=== PATIENT | female | born 1945 | race Caucasian/White ===

== ENCOUNTER 2017-03-14 20:54 | Emergency (ER) | payer MEDICARE, OTHER ==
--- OUTSIDE RECORDS SUMMARY | 2017-03-14 20:57 | XMS | Clinical Summary ---
:1945 Author Organization [facility] Address [address] [place] [address] Phone Care Team Providers Name Role Phone , Primary Care Provider Unavailable Allergies Not on File Current Medications Not on file Active Problems Not on file Social History Tobacco Use Types Packs/Day Years Used Date Never Assessed Sex Assigned at Date Recorded Not on file Last Filed Vital Signs Not on file Plan of Treatment Not on file Results Not on filefrom Last 3 Months
[2017-03-14 22:52] LABS: #Basophils 0.1 thou/uL (0.0-0.2); #Eosinphils 0.2 thou/uL (0.0-0.7); #Lymphocytes 2.5 thou/uL (1.20-3.40); #Neutrophils 6.8 thou/uL (1.40-6.50); %Basophils 1.1 % (0.0-1.0); %Eosinophils 2.1 % (0.0-10.0); %Lymphocytes 23.8 % (21.0-51.0); %Monocytes 9.1 % (0.0-10.0); Hematocrit 45.3 % (36.0-47.0); Mean Platelet Volume 6.8 fL (7.4-10.4); White Blood Cell (WBC) Count 10.6 thou/uL (4.8-10.8)
[2017-03-14 23:15] LABS: ALT (SGPT) Less than 7 U/L (8-55); AST (SGOT) 27 U/L (5-34); Alkaline Phosphatase 83 U/L (40-150); Anion Gap 17 mmol/L (10-20); BUN (Urea Nitrogen) 17 mg/dL (9.8-20.1); Bilirubin, Total 0.4 mg/dL (0.2-1.2); Calc. Creatinine Clearance 0 mL/min (70-130); Calcium 10.1 mg/dL (7.8-10.44); Carbon Dioxide 25 mmol/L (23-31); Chloride 100 mmol/L (98-107); Estimated GFR-MDRD 73; Globulin 3.2 g/dL (2.4-3.5); Protein, Total 7.5 g/dL (6.0-8.3)
--- NOTE | 2017-03-14 23:49 | CT ---
NONCONTRAST CT OF THE CERVICAL SPINE: 03/14/17 INDICATION: Fall with neck pain. COMPARISON: Prior exam dated 02/22/17. FINDINGS: No acute fracture or subluxation is evident. There is slight anterior translation of C2 on C3, C4 on C5 and C5 on C6 which is stable. There is moderate multilevel spondylosis of the cervical spine. Cr aniocervical junction is within normal limits. The lung apices are clear. IMPRESSION: No acute osseous abnormality. POS: [facility]
--- NOTE | 2017-03-14 23:53 | CT ---
NONCONTRAST CT OF THE BRAIN: 03/14/17 INDICATION: Fall. COMPARISON: Prior exam dated 02/22/17. FINDINGS: No acute infarct, hemorrhage, or hydrocephalus present. There is mild generalized cerebral and cereb ellar atrophy. Skull and extracranial soft tissues appear within normal limits. IMPRESSION: No acute intracranial abnormality. No appreciable changes seen from the comparison study of 02/22/17. There is a small air fluid level within the left maxillary sinus which may reflect sequela of acute sinusitis. POS: [facility]
[2017-03-15 00:07] LABS: Bilirubin Negative (Negative); Blood, Urine Small (Negative); Glucose, Urine (Dipstick) Negative (Negative); Ketone, Urine 40 mg/dL (Negative); Nitrite Negative (Negative); Protein, Urine (Dipstick) Negative (Neg-Trace); Urobilinogen 0.2 mg/dL (0.2-1.0)
[2017-03-15 00:25] LABS: Bacteria/HPF None Seen HPF (None Seen); Hyaline Casts/LPF 4-6 HYALINE CAST LPF (0-3 Hyaline); RBC/HPF 21-50 HPF (0-3); Squamous Epithelial 0-3 HPF (0-3); WBC/HPF 0-3 HPF (0-3)
[2017-03-15] MEDS ORDERED: Amoxicillin/Potassium Clav 250 MG TAB ONE (00:30)
== END 2017-03-15 00:49 | disposition home or self-care (01) ==
LOC: ERS 20:54
DX: S09.90XA Unspecified injury of head, initial encounter (principal); J32.9 Chronic sinusitis, unspecified; K21.9 Gastro-esophageal reflux disease without esophagitis; G20 Parkinson's disease; Z79.899 Other long term (current) drug therapy; W01.198A Fall on same level from slipping, tripping and stumbling with subsequent striking against other object, initial encounter
CPT/HCPCS: 51701; 70450; 72125; 80053; 81003; 81015; 85025; A4353

== ENCOUNTER 2017-03-26 10:47 | Observation (INO) | payer MEDICARE, OTHER ==
--- OUTSIDE RECORDS SUMMARY | 2017-03-26 10:50 | XMS | Clinical Summary ---
:1945 Author Organization [facility] Address [address] [place] [address] Phone Care Team Providers Name Role Phone [...]
[2017-03-26 11:45] LABS: #Basophils 0.1 thou/uL (0.0-0.2); #Eosinphils 0.2 thou/uL (0.0-0.7); #Lymphocytes 1.4 thou/uL (1.20-3.40); #Monocytes 0.8 thou/uL (0.11-0.59); #Neutrophils 7.3 thou/uL (1.40-6.50); %Basophils 0.8 % (0.0-1.0); %Eosinophils 1.8 % (0.0-10.0); %Lymphocytes 14.2 % (21.0-51.0); Hematocrit 41.8 % (36.0-47.0); Mean Platelet Volume 6.4 fL (7.4-10.4); Red Blood Cell (RBC) Count 4.38 mill/uL (4.20-5.40); White Blood Cell (WBC) Count 9.6 thou/uL (4.8-10.8)
[2017-03-26 12:16] LABS: ALT (SGPT) Less than 7 U/L (8-55); AST (SGOT) 15 U/L (5-34); Alkaline Phosphatase 75 U/L (40-150); Anion Gap 12 mmol/L (10-20); BUN (Urea Nitrogen) 16 mg/dL (9.8-20.1); Bilirubin, Total 0.5 mg/dL (0.2-1.2); Calc. Creatinine Clearance 0 mL/min (70-130); Calcium 8.8 mg/dL (7.8-10.44); Carbon Dioxide 25 mmol/L (23-31); Chloride 104 mmol/L (98-107); Estimated GFR-MDRD 77; Globulin 2.5 g/dL (2.4-3.5); Protein, Total 6.2 g/dL (6.0-8.3)
--- NOTE | 2017-03-26 12:17 | CT ---
CT HEAD NONCONTRAST: Date: 03/26/17 HISTORY: Altered mental status. Slurred speech. COMPARISON: 03/14/17. FINDINGS: There is no evidence of acute intracranial hemorrhage or infarct. The ventricles appear normal in si ze, shape, and position. There is no mass effect or shift of midline structures. Mild chronic ischem ic small vessel disease is apparent within the periventricular white matter of each cerebral hemisph ere. A small amount of fluid remains within the left maxillary sinus. IMPRESSION: No active cardiopulmonary abnormalities are demonstrated. POS: [facility]
--- NOTE | 2017-03-26 13:03 | RAD ---
AP VIEW OF THE CHEST: INDICATIONS: group home patient with slurred speech and chest pain. FINDINGS: There is a prominent hiatal hernia. There is calcified granuloma in the left lower lobe, which is s table. Chronic lung changes are similar. Chronic osseous changes are similar. IMPRESSION: No acute cardiopulmonary abnormality. POS: [facility]
[2017-03-26] MEDS ORDERED: Aspirin 300 MG Suppository ONE (13:05)
[2017-03-26 13:15] LABS: Bilirubin Negative (Negative); Blood, Urine Negative (Negative); Glucose, Urine (Dipstick) Negative (Negative); Ketone, Urine Trace mg/dL (Negative); Nitrite Negative (Negative); Protein, Urine (Dipstick) Negative (Neg-Trace); Urobilinogen 0.2 mg/dL (0.2-1.0)
--- NOTE | 2017-03-26 14:17 | HP ---
PRIMARY CARE PHYSICIAN: Dr. Hightower CHIEF COMPLAINT: Referred to the [facility] by [facility]. HISTORY OF PRESENT ILLNESS: The patient awoke this morning about 8:00, was doing okay until she started stumbling with words, unable to express herself, lasted about 4 hours. She is now okay. She noted no focal weakness in her arms and legs. No visual disturbance. No headache. PAST MEDICAL HISTORY: Pertinent for Parkinson's disease, gastroesophageal reflux disease, dysphagia, PEG tube. CURRENT MEDICATIONS: Sinemet 25/250 3-3 times a day, omeprazole 20 mg a day, Selegiline 5 mg twice a day, serax 10 mg tid prn, seroquel 50 mg bid. ALLERGIES: No known drug allergies. PAST SURGICAL HISTORY: PEG tube insertion, ORIF of right hip. SOCIAL HISTORY: Resident at [place]. No alcohol, no drugs. No smoking. CODE STATUS: DNR. She has out of hospital DNR. Daughter is present, I confirmed with her and the patient, she is to be DNR. FAMILY HISTORY: No inherited diseases . Pertinent for longevity. REVIEW OF SYSTEMS: GENERAL: No headaches, dizziness, fainting, fevers, sweats or chills. EYES: No double vision, blurred vision, flashing lights. ENT: No ear pain or drainage. No nasal bleeding. No trouble swallowing. CARDIAC: No chest pain, orthopnea or paroxysmal nocturnal dyspnea. RESPIRATIONS: No cough, wheezing or asthma. GASTROINTESTINAL: No nausea, vomiting, diarrhea, abdominal pain. GENITOURINARY: No hematuria or dysuria. MUSCULOSKELETAL: No pain or swelling in her arms or legs. NEUROLOGICAL: No history of strokes, seizures or focal weakness. She does have a history of Parkinson's. PSYCHIATRIC: No anxiety or depression. SKIN: Some minor bruising on her arms. No chronic rash. HEME/LYMPH: No tender or swollen lymph nodes in axilla, inguinal or cervical area. PHYSICAL EXAMINATION: GENERAL: She is an alert, pleasant, cooperative lady. VITAL SIGNS: Blood pressure 148/82, pulse 94, respirations 18, temperature 97.5. HEENT: Pupils equal and round. Extraocular movements are intact. Sclerae white. Tympanic membranes clear. Nose clear. Oral mucous membranes are wet. Dental hygiene is good. NECK: Supple, without jugular venous distention, adenopathy or thyromegaly. CHEST: Clear to auscultation and percussion. HEART: Heart had a regular rate and rhythm. First and second heart sounds are clear. There are no appreciated murmurs or gallops. ABDOMEN: Soft, bowel sounds are normal. There is no hepatosplenomegaly, no mass, no rebound, no bruits. EXTREMITIES: Reveal no cyanosis, clubbing or edema. PULSES: Carotid, radial, femoral, and dorsalis pedis pulses intact. SKIN: Warm and dry with a few small ecchymotic lesions on her forearms consistent with thin skin and minor trauma. NEUROLOGIC: Cranial nerves II-XII are intact. Deep tendon reflexes symmetric. Moves all extremities. She does have cogwheeling. Chest x-ray reveals no cardiomegaly, CHF or infiltrate. She does have a small left lung granuloma which appears calcified, which Radiology states is old, reviewed by me. CT of the brain reveals no acute intracranial abnormality, specifically no hemorrhage, midline shift, etc., reviewed by me. LABORATORY DATA: CBC is grossly normal. White count 9.6, hemoglobin 13.2, platelet count 228,000. Comp metabolic profile is within normal limits. Urinalysis is clear. ADMITTING DIAGNOSES: 1. Speech difficulty consistent with transient ischemic attack. 2. Parkinson's disease. 3. Gastroesophageal reflux disease. 4. Dysphagia. . PLAN: Admit to stroke floor with telemetry, neuro checks, carotid ultrasound, MRI. Continue home medications. MTDD
[2017-03-26] MEDS ORDERED: Acetaminophen 325 MG TAB PER TUBE PRN (14:48)
[2017-03-26] MEDS ORDERED: Ondansetron ODT 4 MG TAB PO PRN (14:48)
[2017-03-26] MEDS ORDERED: Oxazepam 10 MG CAP PO PRN (15:13)
--- NOTE | 2017-03-26 17:06 | ULT ---
BILATERAL CAROTID DUPLEX ULTRASOUND: 03/26/17 HISTORY: TIA. TECHNIQUE: Russell scale ultrasound with color flow and spectral doppler imaging of the extracranial carotid arter y system is performed bilaterally. FINDINGS: There is plaque formation on both sides. The peak systolic velocity in the right ICA measures 39 cm/s with an end diastolic velocity of 12 cm /s and a systolic ratio of 1.08. The peak systolic velocity in the left ICA measures 51 cm/s with an end diastolic velocity of 16 cm/ s and a systolic ratio of 1.63. Flow in both vertebral arteries remains antegrade. IMPRESSION: No evidence of hemodynamically significant stenosis. POS: [facility]
[2017-03-26] MEDS: Carbidopa/Levodopa 25-250 mg Tablet PO SCH (20:24)
--- NOTE | 2017-03-27 07:36 | PDOC.PN ---
- Subjective Encounter Start Date: 03/27/17 Encounter Start Time: 07:34 Subjective: no recurrence of speech difficulty - Objective Resuscitation Status: Resuscitation Status DNR:Do Not Resuscitate MAR Reviewed: Yes Vital Signs & Weight: Vital Signs (12 hours) Temp Pulse Resp BP Pulse Ox 03/27/17 03:30 97.8 F 83 16 123/82 97 03/26/17 23:32 97.8 F 81 18 152/91 H 97 03/26/17 20:38 98.4 F 81 16 Weight Weight 113 lb 14.4 oz Result Diagrams: 03/26/17 11:35 03/26/17 11:35 Phys Exam - Physical Examination Constitutional: NAD Neck: no JVD Respiratory: clear to auscultation bilateral Cardiovascular: RRR, no significant murmur Gastrointestinal: soft, positive bowel sounds Musculoskeletal: no edema, pulses present Neurological: non-focal Dx/Plan (1) TIA (transient ischemic attack) Status: Acute (2) Dyslipidemia Code(s): E78.5 - HYPERLIPIDEMIA, UNSPECIFIED Status: Chronic (3) GERD (gastroesophageal reflux disease) Code(s): K21.9 - GASTRO-ESOPHAGEAL REFLUX DISEASE WITHOUT ESOPHAGITIS Status: Chronic (4) Parkinsons Code(s): G20 - PARKINSON'S DISEASE Status: Chronic - Plan carotid US- no stenosis, MRI pending -: cont ASA * .
[2017-03-27] MEDS ORDERED: Aspirin 325 mg Enteric Coated Tablet PO SCH (09:00)
[2017-03-27] MEDS ORDERED: Enoxaparin Sodium 40 MG/0.4 ML SYRINGE SC SCH (09:00)
[2017-03-27] MEDS ORDERED: Polyethylene Glycol 3350 17 GM Packet PO SCH (09:00)
[2017-03-27] MEDS ORDERED: FLU VACC TS2017-18 (>65YR) 0.5 ML SYRINGE IM ONE (09:00)
[2017-03-27] MEDS: Carbidopa/Levodopa 25-250 mg Tablet PO SCH ×2 (09:12→15:45)
[2017-03-27 12:34] VITALS: BMI 24.5
--- NOTE | 2017-03-27 15:38 | MRI ---
BRAIN MRI NONCONTRAST: INDICATION: Stroke. COMPARISON: Reference is made to head CT of previous day. FINDINGS: There is no evidence o ventriculomegaly, mass effect, or midline shift. No acute territorial infarc tion. Mild chronic microvascular ischemic disease is present within the cerebral white matter. The imaged, central skull base flow voids are maintained. Mild mucosal thickening of the paranasal sin us is present. There is a fluid level of the left maxillary sinus. IMPRESSION: 1. No acute intracranial abnormalities. 2. Additional details are described above. POS: [facility]
[2017-03-27 16:15] VITALS: BP 152/106; TEMP 97.7
--- NOTE | 2017-03-27 16:32 | DIS ---
DATE OF ADMISSION: 03/26/2017 DATE OF DISCHARGE: 03/27/2017 PRIMARY CARE PROVIDER: Mitchell Hightower D.O. DISCHARGE DISPOSITION: Discharged to inpatient rehabilitation. FINAL DIAGNOSES: Transient ischemic attack, Parkinson's disease, gastroesophageal reflux disease, d ysphagia. DISCHARGE MEDICATIONS: MiraLax 17 grams p.o. daily, Serax 10 mg q. 8 hours p.r.n., Seroquel 50 mg p .o. b.i.d., selegiline 5 mg p.o. b.i.d., omeprazole 20 mg a day, Sinemet 25/250 three tabs p.o. t.i. d., Lipitor 10 mg a day, and aspirin 325 mg a day. ALLERGIES: No known drug allergies. PENDING AT THE TIME OF DISCHARGE: Nothing. CODE STATUS: Do not resuscitate. HOSPITAL COURSE: Patient admitted with several hours of slurred speech. CT scan of the brain was u nremarkable. Her admitting laboratory, comprehensive metabolic profile, CBC, and cholesterol studie s were really excellent. Carotid ultrasound revealed no stenosis. MRI revealed no acute infarct. Diagnosis of TIA was made. She was started on aspirin. She is now being started on a statin, zoila schultz on her other home medicines. CONSULTATIONS: None. PROCEDURES: None. FOLLOWUP: Followup will be with Dr. Hightower after leaving the rehab center.
--- NOTE | 2017-04-01 07:43 | CON ---
DATE OF CONSULTATION: 03/26/2017 REASON FOR CONSULTATION: TIA. REFERRING PHYSICIAN: Dr. Agustin Chowdhury HISTORY OF PRESENT ILLNESS: Ms. Cade is a pleasant 71-year-old female who has been consul ning for evaluation of a TIA type episode. History is obtained from the daughter who was present at bedside. The patient is known to me from my clinic with a history of Parkinson disease. She recent ly has noted gradual decline in Parkinson disease along with increasing episodes of hallucinations a nd confusion. I had seen her in my clinic 2 days prior to admission. The daughter reports that on yesterday she was planning for being discharged to another fdc facility. However, just prior to being discharged, she had a sudden onset of garbled speech that was witnessed by the [facility] physician as well as nursing staff. As her symptoms were not improving she was toribio sferred to [facility]. Daughter reports that her symptoms did start improving after a few hours being into the hospital. During with the onset of this episode they had measured her bl ood pressure which was noted to be normal. She also had a normal fingerstick glucose at that time. Currently, the patient denies any headache, chest pain, palpitation, numbness, tingling or weakness . Daughter does report that she has been having episodes of not being able to sleep well at night, although she did go to sleep at 9 o'clock last night according to the patient. PAST MEDICAL HISTORY: Significant for hypertension, hyperlipidemia, Parkinson disease, and GERD. PAST SURGICAL HISTORY: Significant for PEG tube placement, right hip ORIF. CURRENT MEDICATIONS: Please review MAR. ALLERGIES: No known drug allergies. SOCIAL HISTORY: She currently resides at [facility]. She does not smoke or drink alcohol or use illicit drugs. FAMILY HISTORY: Noncontributory. REVIEW OF SYSTEMS: As mentioned in the HPI, otherwise negative. PHYSICAL EXAMINATION: VITAL SIGNS: Blood pressure of 121/81, pulse of 81, temperature of 98.4, respirations of 16, O2 sat s 90% on room air. GENERAL: Well-developed, well-nourished female in no apparent distress. RESPIRATORY: Clear to auscultation bilaterally. CARDIOVASCULAR: Regular rate and rhythm. NEUROLOGICAL: Mental status: The patient is awake, alert, oriented x2. Speech and language: Flue nt speech. Cranial nerves: Pupils are 3 mm and reactive. Visual jeronimo are intact. Extraocular movements are intact. Face is symmetric. Tongue and uvula are midline. Motor exam augie wed mild cogwheeling, rigidity in both wrists, strength is 5/5 in both upper and lower extremities. Deep tendon reflexes 2+ reflexes in both upper and lower extremities. Babinski: Plantar responses flexion bilaterally. Sensory: Sensation is intact and symmetric. Coordination; intact to finger- nose-finger bilaterally. LABORATORY DATA: Labs are reviewed which included CBC, CMP, and urinalysis, which is essentially no rmal. IMAGING STUDIES: CT head without contrast was reviewed which showed no acute intracranial abnormali ty. IMPRESSION: 1. Transient episode of expressive aphasia, now resolved. 2. Parkinson's disease. 3. Hallucinations. Ms. Cade is a pleasant 71-year-old female who presented with the episode of expressive aph ceci that has now resolved. I had a long discussion with the patient's daughter and explained that this could be secondary to a transient ischemic attack. This could also be seen in patients with th e sleep deprivation. At this time, I would recommend obtaining MRI brain without contrast for furth er evaluation. If her MRI brain is nonrevealing and she is stable over the night, she is okay to be discharged to the residential facility and I will be seeing her back in my clinic as scheduled. Thank you for the consultation.
== END 2017-03-27 17:45 ==
LOC: ERS 10:47 → 2SE 13:10
PROVIDERS: ADMIT Internal Medicine; ATTEND Internal Medicine
DX: G45.9 Transient cerebral ischemic attack, unspecified (principal); G20 Parkinson's disease; K21.9 Gastro-esophageal reflux disease without esophagitis; R13.10 Dysphagia, unspecified; K44.9 Diaphragmatic hernia without obstruction or gangrene; J84.89 Other specified interstitial pulmonary diseases; Z79.82 Long term (current) use of aspirin; Z79.899 Other long term (current) drug therapy; Z66 Do not resuscitate; Z98.890 Other specified postprocedural states
CPT/HCPCS: 51701; 70450; 70551; 71010; 80053; 80061; 81003; 85025; 93005; 93880; 94760; 96372; 97116; 97139 ×2; 97535; 99285; G0378; G8978; G8979; G8987; G8988; 36415; A4353; G8996-GN-CJ; G8996-GN-CK; G8997-GN-CJ; J1650

== ENCOUNTER 2017-04-08 12:25 | Observation (INO) | payer MEDICARE, OTHER ==
[2017-04-08 13:01] LABS: #Basophils 0.1 thou/uL (0.0-0.2); #Eosinphils 0.1 thou/uL (0.0-0.7); #Lymphocytes 1.3 thou/uL (1.20-3.40); #Monocytes 0.5 thou/uL (0.11-0.59); #Neutrophils 6.8 thou/uL (1.40-6.50); %Basophils 0.8 % (0.0-1.0); %Eosinophils 1.7 % (0.0-10.0); %Lymphocytes 14.6 % (21.0-51.0); %Monocytes 5.3 % (0.0-10.0); Hematocrit 43.8 % (36.0-47.0); Mean Platelet Volume 6.8 fL (7.4-10.4); Red Blood Cell (RBC) Count 4.57 mill/uL (4.20-5.40); White Blood Cell (WBC) Count 8.7 thou/uL (4.8-10.8)
[2017-04-08 13:27] LABS: ALT (SGPT) Less than 7 U/L (8-55); AST (SGOT) 24 U/L (5-34); Alkaline Phosphatase 87 U/L (40-150); Anion Gap 11 mmol/L (10-20); BUN (Urea Nitrogen) 16 mg/dL (9.8-20.1); Bilirubin, Total 0.5 mg/dL (0.2-1.2); Calc. Creatinine Clearance 0 mL/min (70-130); Calcium 9.6 mg/dL (7.8-10.44); Carbon Dioxide 30 mmol/L (23-31); Chloride 101 mmol/L (98-107); Estimated GFR-MDRD 61; Globulin 2.9 g/dL (2.4-3.5); Protein, Total 7.1 g/dL (6.0-8.3)
[2017-04-08 13:32] LABS: Troponin I Less than 0.010 ng/mL (< 0.028)
--- NOTE | 2017-04-08 14:04 | CT ---
CT OF HEAD NONCONTRAST: Date: 04/08/17 COMPARISON: 03/26/17. CLINICAL HISTORY: Altered mental status. FINDINGS: There is hyperostosis frontalis interna. No ventriculomegaly, mass effect, midline shift, or acute i ntracranial hemorrhage. There is a mild fluid level at the posterior right maxillary sinus. There is evidence of mild chronic microvascular ischemic disease. There is a thin linear hypoattenua tion of the right parietal white matter, likely gliosis. IMPRESSION: 1. No acute intracranial abnormality. 2. Additional details are described above. POS: [facility]
[2017-04-08 14:27] LABS: Bilirubin Negative (Negative); Blood, Urine Negative (Negative); Glucose, Urine (Dipstick) Negative (Negative); Ketone, Urine Trace mg/dL (Negative); Nitrite Negative (Negative); Protein, Urine (Dipstick) Negative (Neg-Trace); Urobilinogen 0.2 mg/dL (0.2-1.0)
[2017-04-08] MEDS ORDERED: levETIRAcetam 500 MG/100 ML PREMIX BAG ONE (16:43)
[2017-04-08] MEDS ORDERED: Ondansetron ODT 4 MG TAB SL PRN (18:12)
[2017-04-08] MEDS ORDERED: Ondansetron HCl/PF 4 MG/2 ML Vial IVP PRN (18:12)
[2017-04-08] MEDS ORDERED: Acetaminophen 325 MG TAB PO PRN ×2 (18:12→18:47)
[2017-04-08] MEDS ORDERED: Milk Of Magnesia 30 ML UDCUP PO PRN (18:47)
[2017-04-08] MEDS ORDERED: Lorazepam 2 MG/ML VIAL SLOW IVP PRN (18:47)
--- NOTE | 2017-04-08 20:02 | HP ---
PRIMARY CARE PHYSICIAN: Mitchell Hightower D.O. CHIEF COMPLAINT: The patient is having garbled speech and erratic movements. HISTORY OF PRESENT ILLNESS: Ms. Cade is a pleasant 71-year-old female that has a history of Daniel on disease as well as previous history of dysphagia. Her daughter, who is the historian and at the bedside says that her mom has had a very tough last 2 months and says that in the last couple of wee ks, she has been getting progressively weaker. She had a stay at [facility] to help improve her strength, but it has not helped. About 2 weeks ago, she was admitted to our facility fo r TIA symptoms in which she was having garbled speech and her daughter says at that time, she had so me erratic movements in her limbs and was diagnosed with a TIA and then sent to [facility]. She says that while she has been at [facility], she had some delusions and hallucinations, s ome of which were thought to be due to her medications. She says that she has not been doing well i n rehabilitation and has gotten progressively worse and typically gets weaker every day. Today, her other daughter was with her and noticed that she fell and the nurse luckily caught her and noticed that as she was falling, she seemed to have a sporadic movements throughout her entire body and duri ng this time, she was not responding. She was looking off to the side and seemed to have a droop on the left facial droop. This she says lasted for about 30 minutes. They called EMS and brought her to the emergency room where she had a CT scan of the brain which was negative and is being admitted to the hospital for possible seizures. The patient's daughter says the only new medication they st arted was Risperdal on Friday because she was having some combative behavior and Saturdays, she seem ed a little bit confused and was thinking that she was at the [place]. Otherwise, there is no other significant relevant history. Negative symptoms include no fevers or chills, no focal weakness, ten dency. REVIEW OF SYSTEMS: CONSTITUTIONAL: Again, the patient denies any headaches. She says she is occasionally dizzy, but n o visual changes, no sore throat, rhinorrhea, neck pain, no adenopathy. PULMONARY: No hemoptysis, no cough, no wheezing. CARDIOVASCULAR: She denies any chest pain, no shortness of breath, no PND, no orthopnea. GASTROINTESTINAL: No abdominal pain, no nausea, no vomiting, no change in bowels. GENITOURINARY: No urinary frequency, hematuria, no hesitancy. NEUROLOGIC: As in the history of present illness. SKIN/INTEGUMENT: No skin changes. No rash. PSYCHIATRIC: No symptoms of anxiety or depression; however, she has had, which they called illusion s and some hallucinations off and on. PAST MEDICAL HISTORY: Significant for Parkinson disease, gastroesophageal reflux disease, dysphagia ; however, she is no longer using the PEG tube and tolerates a pureed diet. PAST SURGICAL HISTORY: She has had a PEG tube and had surgery on her nose. ALLERGIES: No known drug allergies. SOCIAL HISTORY: She currently resides at [facility]. She is a nonsmoker, nondrinker. FAMILY HISTORY: No history of any heritable diseases. MEDICATIONS: Carbidopa/levodopa 25/250 one tablet 3 times a day, ibuprofen 200 mg p.r.n., MiraLax 1 7 grams daily, oxazepam 10 mg as needed, pantoprazole 40 mg daily, selegiline 5 mg twice a day, Sero quel 50 mg at bedtime and Tylenol 325 mg q.4 hours as needed. PHYSICAL EXAMINATION: GENERAL: She is alert and oriented. She appears to be in no acute distress. VITAL SIGNS: Blood pressure was 103/71, heart rate 86, respiratory rate of 19, temperature is 97.9. HEENT: Pupils equal, round, and reactive. Extraocular muscles are intact. Sclerae are anicteric. Throat no erythema, no exudates. NECK: No adenopathy, no bruits. LUNGS: Clear. There is no wheezing, no rales. CARDIOVASCULAR: She has a normal S1, S2. I did not appreciate an S3 or S4. No murmurs, clicks or rubs. ABDOMEN: Soft, nontender, nondistended. Positive for bowel sounds. No rebound or guarding. EXTREMITIES: There is no edema. NEUROLOGICALLY: Her cranial nerves II-XII are grossly intact. Her muscle strength is 5/5 in both h er upper and lower extremities. LABORATORY RESULTS: White blood cell count 8.7, hemoglobin 13.8, hematocrit is 43.8, platelet count of 256. Sodium 138, potassium 3.9, chloride is 101, CO2 is 30, BUN of 16, creatinine 0.91, glucose is 131. Urinalysis was essentially negative. CT of the brain showed no acute intracranial abnorma lities. ASSESSMENT AND PLAN: This is a 71-year-old female that was brought to the emergency room after suff ering what sounds like was a seizure based on the description. She will be admitted to telemetry ob servation to the stroke unit. The plan was to load her with Dilantin; however, the patient's daught er would like to wait until she talks with her neurologist before starting any antiepileptic medicat ion. In the meantime, if she has a recurrence seizure, we would use an Ativan or Valium and then po tentially start her on any antiepileptic medication at that time. If this occurs before Dr. Ogden ca n evaluate the patient. We will check magnesium as well as prolactin level. We will hold off on re peat MRI until she is evaluated by Dr. Ogden. We will continue her usual home medications.
[2017-04-08] MEDS: Carbidopa/Levodopa 25-250 mg Tablet PO SCH (22:52)
[2017-04-09 02:30] VITALS: BMI 20.2
[2017-04-09 06:09] LABS: Anion Gap 9 mmol/L (10-20); BUN (Urea Nitrogen) 15 mg/dL (9.8-20.1); Calc. Creatinine Clearance 60 mL/min (70-130); Calcium 9.4 mg/dL (7.8-10.44); Carbon Dioxide 29 mmol/L (23-31); Chloride 103 mmol/L (98-107); Estimated GFR-MDRD 85
[2017-04-09] MEDS ORDERED: FLU VACC TS2017-18 (>65YR) 0.5 ML SYRINGE IM ONE (09:00)
--- NOTE | 2017-04-09 10:20 | PDOC.PN ---
- Subjective Encounter Start Date: 04/09/17 Encounter Start Time: 10:18 Ms. Cade does not have any complaints. she says she rested ok last night. There have not been any seizures reported overnight. - Objective Resuscitation Status: Resuscitation Status FULL:Full Resuscitation MAR Reviewed: Yes Vital Signs & Weight: Vital Signs (12 hours) Temp Pulse Resp BP Pulse Ox 04/09/17 07:42 97.8 F 82 16 128/74 97 04/09/17 04:24 97.8 F 84 14 121/78 94 L 04/09/17 00:38 98 F 99 14 140/84 96 Weight Weight 112 lb 11.2 oz Result Diagrams: 04/08/17 12:49 04/09/17 05:04 Phys Exam - Physical Examination HEENT: PERRLA Respiratory: no wheezing, no rales, no rhonchi, clear to auscultation bilateral Cardiovascular: RRR, no significant murmur Gastrointestinal: soft, non-tender, positive bowel sounds Musculoskeletal: no edema Dx/Plan (1) Seizure Code(s): R56.9 - UNSPECIFIED CONVULSIONS Status: Acute (2) Dyslipidemia Code(s): E78.5 - HYPERLIPIDEMIA, UNSPECIFIED Status: Chronic (3) Dysphagia Code(s): R13.10 - DYSPHAGIA, UNSPECIFIED Status: Chronic (4) GERD (gastroesophageal reflux disease) Code(s): K21.9 - GASTRO-ESOPHAGEAL REFLUX DISEASE WITHOUT ESOPHAGITIS Status: Chronic (5) Parkinsons Code(s): G20 - PARKINSON'S DISEASE Status: Chronic - Plan * New Onset Seizure- patient has not had any recurrent seizure * Await Neurology evaluation * Will evaluate her swallow function, place her on fluids while she is NPO * GERD- stable- this can be very severe according to her daughter, so if she stays NPO, then will give Protonix IV.
[2017-04-09] MEDS: Dextrose 5 % And 0.9 % NaCl 1,000 ML IV SCH ×2 (11:27→23:55)
[2017-04-09] MEDS: Enoxaparin Sodium 30 MG/0.3 ML SYRINGE SC SCH (11:31)
[2017-04-09] MEDS: Carbidopa/Levodopa 25-250 mg Tablet PO SCH ×3 (11:56→20:28)
[2017-04-09] MEDS: Aspirin 325 mg Enteric Coated Tablet PO SCH (11:56)
[2017-04-09] MEDS: Atorvastatin Calcium 10 MG TAB PO SCH (11:57)
[2017-04-09] MEDS: Oxazepam 10 MG CAP PO PRN (18:39)
[2017-04-09] MEDS ORDERED: Clopidogrel Bisulfate 75 MG TAB ONE (18:46)
[2017-04-09] MEDS: traZODone HCl 50 MG TAB PO SCH (20:44)
[2017-04-10] MEDS: Oxazepam 10 MG CAP PO PRN (04:13)
[2017-04-10] MEDS ORDERED: FLU VACC TS2017-18 (>65YR) 0.5 ML SYRINGE IM ONE (09:00)
[2017-04-10] MEDS: Carbidopa/Levodopa 25-250 mg Tablet PO SCH ×3 (09:02→20:17)
[2017-04-10] MEDS: Atorvastatin Calcium 10 MG TAB PO SCH (09:03)
[2017-04-10] MEDS: Aspirin 325 mg Enteric Coated Tablet PO SCH (09:03)
[2017-04-10] MEDS: Enoxaparin Sodium 30 MG/0.3 ML SYRINGE SC SCH (09:04)
--- NOTE | 2017-04-10 10:39 | PDOC.PN ---
- Subjective Encounter Start Date: 04/10/17 Encounter Start Time: 10:39 Patient seen at bedside. No seizures overnight. No new events. - Objective Resuscitation Status: Resuscitation Status FULL:Full Resuscitation MAR Reviewed: Yes Vital Signs & Weight: Vital Signs (12 hours) Temp Pulse Resp BP Pulse Ox 04/10/17 08:15 97.4 F L 72 14 139/89 96 04/10/17 03:10 96.6 F L 82 20 138/77 99 04/10/17 00:01 97.8 F 102 H 16 110/76 94 L Weight Weight 112 lb 12.8 oz I&O: 04/09/17 04/10/17 04/11/17 06:59 06:59 06:59 Intake Total 930 Balance 930 Result Diagrams: 04/08/17 12:49 04/09/17 05:04 Phys Exam - Physical Examination Constitutional: NAD HEENT: moist MMs Neck: no JVD Respiratory: clear to auscultation bilateral Cardiovascular: RRR Positive PEG tube Musculoskeletal: no edema Neurological: moves all 4 limbs Right sided tremor Deviation from normal: awake, alert, oriented x2, slow to give verbal responses Dx/Plan (1) Dyslipidemia Code(s): E78.5 - HYPERLIPIDEMIA, UNSPECIFIED Status: Chronic (2) Dysphagia Code(s): R13.10 - DYSPHAGIA, UNSPECIFIED Status: Chronic (3) GERD (gastroesophageal reflux disease) Code(s): K21.9 - GASTRO-ESOPHAGEAL REFLUX DISEASE WITHOUT ESOPHAGITIS Status: Chronic (4) Parkinsons Code(s): G20 - PARKINSON'S DISEASE Status: Chronic - Plan cont current plan of care, PT/OT, adoption social worker, DVT proph w/lovenox * Appreciate neurology input. At this time, reportedly presentation was from Parkinson's as opposed to a seizure. Will await official consult * F/U EEG * D/C IV fluids * Supportive care. At this time, she remains lethargic but awake and alert. Will need to continue to monitor
--- NOTE | 2017-04-10 12:03 | CON ---
DATE OF CONSULTATION: 04/09/2017 REFERRING PHYSICIAN: Dr. Ronnie Peralta REASON FOR CONSULTATION: New onset seizure. HISTORY OF PRESENT ILLNESS: Ms. Cade is a pleasant 71-year-old female well known to me fr om previous encounters in clinic appointments, has been consulted for evaluation of a new seizure. History is obtained from daughter who was present at bedside. Daughter reports that after her most recent discharge from the hospital she has been discharged to [facility] for rehab, but while there she has noted gradual decline in her stamina and strength. There has also been increasing episodes of difficulty with sleeping at night, increasing hallucinations and delusional behavior during the night. She notes that on Friday, the patient's other daughter was visiting from [place] who note d the patient suddenly stared out in space and had a full body jerk that lasted for approximately 3 minutes. Before the jerking started they had checked her blood pressure and it was 82/50 and at jared t point she had passed out and then started having jerking type episode. Again, this lasted anywher e between 2-3 minutes and she was brought to the [facility]. Since being here, she h as not had any more episode of jerking type episode. She has been more confused on and off since he r last visit. She has no prior history of seizure disorder. episode of seizure when . PAST MEDICAL HISTORY: Parkinson's disease, GERD, dysphagia. PAST SURGICAL HISTORY: Significant for PEG tube placement. CURRENT MEDICATIONS: Please review MAR. ALLERGIES: No known drug allergies. SOCIAL HISTORY: She denies smoking, alcohol use, or illicit drug use. She is currently at [facility] rehab facility. FAMILY HISTORY: Noncontributory. REVIEW OF SYSTEMS: As mentioned in the HPI, otherwise negative. PHYSICAL EXAMINATION: VITAL SIGNS: Blood pressure of 138/77, pulse of 82, temperature of 96.6, respirations of 20, O2 sat s of 99% on room air. GENERAL: Thin appearing female resting in bed in no apparent distress. RESPIRATORY: Clear to auscultation bilaterally. CARDIOVASCULAR: Regular rate and rhythm. NEUROLOGIC: Mental status: The patient is awake, alert, oriented x2. Speech and language: Fluent speech. Cranial nerves: Pupils are 2 mm and reactive. Extraocular muscles are intact. No nystag mus is noted. Face is symmetric. Motor exam showed mild cogwheeling rigidity in both upper extremi ties. Strength is 5/5 in both upper and lower extremities. Deep tendon reflexes of 1+ reflex in tammie th upper and lower extremities. Babinski: Plantar responses flexor bilaterally. Coordination inta ct to [id number] and finger tapping bilaterally. LABORATORY DATA: Labs are reviewed which included CBC, CMP, urinalysis which is all essentially nor mal. IMAGING STUDIES: CT head without contrast was reviewed which showed no acute intracranial abnormali ty. IMPRESSION: 1. Parkinson disease. 2. Dysautonomia, due to #1. 3. Seizure-like event, likely secondary to hypotensive episode. 4. Hallucinations and Parkinson's disease psychosis. ASSESSMENT AND PLAN: Ms. Cade is a 71-year-old female with a Parkinson's disease who pres ented with the episode of near syncope and convulsions. I have discussed with the patient's felisha r in detail and explained that she has an advanced Parkinson disease and she may be having autonomic dysfunction secondary to Parkinson's disease which has resulted in fluctuating blood pressure. Her recent event of a seizure-like event was probably secondary to hypotension that resulted in the syn copal spell and followed by convulsions. I do not think that she needs to be started on any anticon vulsant medications. I have explained to her that due to advancement of the Parkinson disease, ther e are medications and medications are not as helpful for her ongoing symptoms. We discussed about D NR status. We discussed about future prognosis in detail and I also discussed about the nursing joelle e placement. I had spent approximately 35 minutes for 35-40 minutes for both discussion and christian counselor ing. Continue supportive care. Thank you for the consultation.
[2017-04-10] MEDS: Dextrose 5 % And 0.9 % NaCl 1,000 ML IV SCH (13:25)
[2017-04-10] MEDS: traZODone HCl 50 MG TAB PO SCH (20:17)
--- NOTE | 2017-04-11 00:28 | OP ---
DATE OF PROCEDURE: 04/10/2017 PROCEDURE PERFORMED: Gastrostomy exchange at the bedside. PREOPERATIVE NOTE: Ms. Cade is a 71-year-old woman with end-stage Parkinson's who had a gastrostomy tube placed in 04/2016. The tube was now about a year old and has become brittle and black and the family has requested that we replace this tube. She has some granulation tissue around the gastros kwame opening, but the skin otherwise appears healthy without signs of infection. DESCRIPTION OF PROCEDURE: The procedure was discussed with the patient and the patient's daughter. They were informed that the gastrostomy tube could break upon removal and if the internal bumper br eaks off inside, then that could require EGD to remove the foreign body. The gastrostomy tube was r emoved with gentle traction. This was removed intact without any complications. A new 20-Bruneian re placement gastrostomy tube was then placed. The internal balloon was inflated with 20 mL of sterile water. The external bumper was placed at 3 cm. The site was dressed and again she tolerated the p rocedure well. IMPRESSION: Successful exchange of a 20-Bruneian gastrostomy tube at the bedside. PLAN: She can start feeds immediately. Currently, she has not been needing the tube and she has be en getting her nutrition primarily through oral means.
[2017-04-11] MEDS: Dextrose 5 % And 0.9 % NaCl 1,000 ML IV SCH (04:20)
[2017-04-11] MEDS: Aspirin 325 mg Enteric Coated Tablet PO SCH (09:15)
[2017-04-11] MEDS: Atorvastatin Calcium 10 MG TAB PO SCH (09:15)
[2017-04-11] MEDS: Enoxaparin Sodium 30 MG/0.3 ML SYRINGE SC SCH (09:15)
[2017-04-11] MEDS: Carbidopa/Levodopa 25-250 mg Tablet PO SCH (09:16)
--- NOTE | 2017-04-11 09:54 | PDOC.PN ---
- Subjective Encounter Start Date: 04/11/17 Encounter Start Time: 08:30 Subjective: awake, responds well to verbal questions -: no specific weakness, is able to move all extremities - Objective Resuscitation Status: Resuscitation Status FULL:Full Resuscitation MAR Reviewed: Yes Vital Signs & Weight: Vital Signs (12 hours) Temp Pulse Resp BP Pulse Ox 04/11/17 08:00 98.5 F 68 16 151/88 H 93 L 04/11/17 03:30 98.2 F 80 18 147/86 H 98 04/11/17 00:07 96.0 F L 72 16 126/77 97 Weight Weight 112 lb 12.8 oz I&O: 04/10/17 04/11/17 04/12/17 06:59 06:59 06:59 Intake Total 930 3450 120 Balance 930 3450 120 Result Diagrams: 04/08/17 12:49 04/09/17 05:04 Phys Exam - Physical Examination HEENT: PERRLA, sclera anicteric Neck: no JVD, supple Respiratory: no wheezing, no rales Cardiovascular: RRR, no significant murmur Gastrointestinal: soft, non-tender, positive bowel sounds Musculoskeletal: no edema, pulses present Neurological: non-focal, moves all 4 limbs Psychiatric: A&O x 3 Dx/Plan (1) Dysautonomia Code(s): G90.9 - DISORDER OF THE AUTONOMIC NERVOUS SYSTEM, UNSPECIFIED Status : Acute (2) Seizure Code(s): R56.9 - UNSPECIFIED CONVULSIONS Status: Acute Comment: likely sec to hypotension from dysautonomia (3) Dyslipidemia Code(s): E78.5 - HYPERLIPIDEMIA, UNSPECIFIED Status: Chronic (4) Dysphagia Code(s): R13.10 - DYSPHAGIA, UNSPECIFIED Status: Chronic Comment: has peg tube (5) GERD (gastroesophageal reflux disease) Code(s): K21.9 - GASTRO-ESOPHAGEAL REFLUX DISEASE WITHOUT ESOPHAGITIS Status: Chronic Qualifiers: Esophagitis presence: esophagitis presence not specified Qualified Code(s) : K21.9 - Gastro-esophageal reflux disease without esophagitis (6) Parkinsons Code(s): G20 - PARKINSON'S DISEASE Status: Chronic - Plan hemo/neuro stable -: awaiting placement ?rehab/swing bed -: may dc anytime if placement is ready -: PT/OT to mobilize as tolerated * . Review of Systems - Medications/Allergies Allergies/Adverse Reactions: Allergies Allergy/AdvReac Type Severity Reaction Status Date / Time No Known Drug Allergies Allergy Verified 04/08/17 19:42 Medications: Current Medications Acetaminophen (Tylenol) 650 mg PO Q4H PRN PRN Reason: Headache/Fever or Pain Last Admin: 04/10/17 18:59 Dose: 650 mg Aspirin (Ecotrin) 325 mg PO DAILY [facility] Last Admin: 04/11/17 09:15 Dose: 325 mg Atorvastatin Calcium (Lipitor) 10 mg PO DAILY [facility] Last Admin: 04/11/17 09:15 Dose: 10 mg Carbidopa/Levodopa (Sinemet 25-250) 3 tab PO TID [facility] Last Admin: 04/11/17 09:16 Dose: 3 tab Enoxaparin Sodium (Lovenox) 30 mg SC 0900 [facility] Last Admin: 04/11/17 09:15 Dose: 30 mg Lorazepam (Ativan) 2 mg SLOW IVP Q15MIN PRN PRN Reason: Seizures Magnesium Hydroxide (Milk Of Magnesium) 30 ml PO DAILYPRN PRN PRN Reason: Constipation Oxazepam (Serax) 10 mg PO Q8H PRN PRN Reason: Anxiety Last Admin: 04/10/17 04:13 Dose: 10 mg Pantoprazole Sodium (Protonix) 40 mg PO DAILY [facility] Last Admin: 04/11/17 09:15 Dose: 40 mg Quetiapine Fumarate (Seroquel) 50 mg PO BID [facility] Last Admin: 04/11/17 09:16 Dose: 50 mg Selegiline HCl (Eldepryl) 5 mg PO BID [facility] Last Admin: 04/11/17 09:16 Dose: 5 mg Trazodone HCl (Desyrel) 50 mg PO HS [facility] Last Admin: 04/10/17 20:17 Dose: 50 mg
[2017-04-11 12:26] VITALS: BP 155/97; TEMP 97.7
--- NOTE | 2017-04-11 21:24 | DIS ---
DATE OF ADMISSION: 04/08/2017 DATE OF DISCHARGE: 04/11/2017 DISCHARGE DISPOSITION: To [facility]. PRIMARY DISCHARGE DIAGNOSES: Dysautonomia with hypotension and seizure episode. SECONDARY DISCHARGE DIAGNOSES: Parkinson's disease, dyslipidemia, dysphagia with history of PEG tube and a gastrostomy exchange done during this hospitalization, and gastroesophageal reflux disease. PROCEDURES DONE DURING HOSPITALIZATION: CT brain done on the day of admission showed no acute intracranial abnormality. The patient has had gastrostomy exchange done for worn out old PEG tube by Dr. Tereso Meek on 04/10/2017. Blood cultures x2 no growth. Urine culture no growth. Prolactin levels are 4.83. DISCHARGE MEDICATIONS: Aspirin 325 mg p.o. daily, Lipitor 10 mg p.o. daily, Sinemet 25/250 mg 3 tabs p.o. 3 times daily, oxazepam 10 mg p.o. q.8 hourly p.r.n., Protonix 40 mg p.o. daily, MiraLax 17 grams daily, Seroquel 50 mg twice daily, selegiline 5 mg p.o. twice daily, trazodone 50 mg p.o. at bedtime, multivitamin 1 tablet once daily, and atorvastatin 10 mg p.o. at bedtime. ALLERGIES: No known drug allergies. INPATIENT CONSULTS: Dr. Bianca Ogden for Neurology. BRIEF COURSE DURING HOSPITALIZATION: The patient initially came in with complaints of gait abnormality and garbled speech. The initial suspicion was for TIA. She was placed under observation on telemetry. The patient was also suspected to have had seizure. She has had consultation with Dr. Bianca Ogden for Neurology. The patient likely has dysautonomia due to her advanced Parkinson's with hypotensive episode leading up to her seizure. She has not had any further seizures. She was not placed on any antiepileptic medications. She has been accepted to [facility] and will be shortly discharged there with home health and PT along with fci. She has otherwise remained hemodynamically stable and neurologically stable prior to discharge. A total of 35 minutes was spent on discharge plan. Please see a [id number] documentation on [facility] for the day of discharge. [facility]
--- OUTSIDE RECORDS SUMMARY | 2017-04-14 17:40 | XMS | Clinical Summary ---
:1945 Author Organization [facility] Address [address] [place] [address] Phone Care Team Providers Name Role Phone [...]
== END 2017-04-11 13:24 ==
LOC: ERS 12:25 → 2SE 16:27
PROVIDERS: ADMIT Internal Medicine; ATTEND Internal Medicine
PROC: 0D20XUZ Change Feeding Device in Upper Intestinal Tract, External Approach (ICD-10-PCS; principal; 2017-04-10)
DX: G90.1 Familial dysautonomia [Riley-Day] (principal); G20 Parkinson's disease; Z43.1 Encounter for attention to gastrostomy; Z46.89 Encounter for fitting and adjustment of other specified devices; I95.9 Hypotension, unspecified; R56.9 Unspecified convulsions; E78.5 Hyperlipidemia, unspecified; R13.10 Dysphagia, unspecified; K21.9 Gastro-esophageal reflux disease without esophagitis; R44.3 Hallucinations, unspecified; F28 Other psychotic disorder not due to a substance or known physiological condition; R53.1 Weakness; Z79.82 Long term (current) use of aspirin; Z79.899 Other long term (current) drug therapy; Z98.890 Other specified postprocedural states; Z91.81 History of falling; Z86.73 Personal history of transient ischemic attack (TIA), and cerebral infarction without residual deficits
CPT/HCPCS: 43760; 51701; 70450; 80048; 80053; 81003; 82553; 83605; 83735; 84146; 84484 ×2; 85025; 87040; 87086; 93005; 95816; 95819; 96360; 96361 ×2; 96372 ×3; 97139; 99285; G0378 ×2; 36415; 90471; 90682; A4353; G0008; G8996-GN-CJ; G8997-GN-CJ; J1650; J1953; Q2036

== ENCOUNTER 2017-11-02 17:44 | Day surgery (SDC) | payer MEDICARE, OTHER ==
[~2017-11-02 17:44] MED LIST: Lidocaine 1% PF 5 ML VIAL ONE; PROPOFOL 200 MG/20 ML VIAL ONE; Succinylcholine Chloride 20 MG/ML 10 ml SYRINGE FS ONE
[2017-11-02] MEDS ORDERED: Fentanyl 100 MCG/2 ML VIAL ONE (23:57)
--- NOTE | 2017-11-03 01:26 | CON ---
DATE OF CONSULTATION: 11/02/2017 CHIEF COMPLAINT: Trouble swallowing. HISTORY OF PRESENT ILLNESS: Ms. Cade is a 72-year-old woman with advanced Parkinson's who has been u nable to swallow her saliva since eating breakfast this morning. She just had oatmeal this morning. She has had a history of distal esophageal stricture dilated multiple times in the past. She also h as a hiatal hernia and presbyesophagus. She has advanced Parkinson's, which may also be contributing to her trouble swallowing. Currently, though she has constant drooling and then will spit up larger volumes of saliva. This is most consistent with an obstruction in the distal esophagus and she most likely has a food bolus impaction. She did have a gastrostomy tube placed back in 04/2016. This wa s replaced with a replacement gastrostomy tube in 03/2017. After placement of the replacement tube, she started having problems with leakage from the tube and she actually lost weight. She had ultimat len the tube removed and then she could eat better by mouth and started gaining weight again. Unfort unately, more recently she has had trouble where she intermittently gets food stuck and she drools an d then the food tends to pass on down. At this time, the food has remained stuck all day and she has been unable to tolerate her secretions throughout the day. She came to the emergency room for [facility] care. She had no chest pain or trouble breathing. No abdominal pain. PAST MEDICAL HISTORY: End-stage Parkinson's disease, gastroesophageal reflux disease, esophageal str icture requiring dilation in the past. PAST SURGICAL HISTORY: PEG tube placement. No surgery. FAMILY HISTORY: Negative for GI malignancies. SOCIAL HISTORY: No alcohol, tobacco, or drugs. ALLERGIES: No known drug allergies. REVIEW OF SYSTEMS: Negative x10 systems reviewed except as stated in the history of present illness. PHYSICAL EXAMINATION: GENERAL: She is frail. She is drooling her saliva constantly. NECK: Somewhat contracted forward. LUNGS: Clear to auscultation bilaterally. HEART: Regular rate and rhythm. ABDOMEN: Soft, nontender, nondistended. Bowel sounds are present. EXTREMITIES: No lower extremity edema. IMPRESSION: 1. Esophageal foreign body. I believe, she has a food impaction at this point in time associated wi th her esophageal stricture. I will plan EGD to remove foreign body and try to dilate her esophageal stricture in this evening. It is possible that she has more of a neuromuscular problem related to h er Parkinson's, however, with the episodic spitting up of the large volume of saliva. This is more c onsistent with reservoir effect in the esophagus with distal obstruction rather than oropharyngeal dy sphagia. 2. Her daughter is highly concerned about the possibility of having to place a feeding tube again. If she does have type of feeding tube placed then she will not be able to stay at the facility of [facility] ([place], [place]) that she is currently living in. She is also concerned that the previous replacement tube was not working well; however, it sounds to me like what happened with the previous replacement tube with that balloon likely migrated, passed to the pylorus and was causing obstruction and then l eakage at the skin site. This potentially could have been deflated and reinflated within the stomach lumen. I cannot confirm that case now; however, at this point, I would think that if she did requir e a gastrostomy tube, she would probably tolerate it just fine. Her daughter does not want to underg o gastrostomy tube with this emergent procedure given the multiple other implications that would come along with that tube. Ultimately if the endoscopy today, then does not reveal a food bolus obstruct ion or a tight stricture causing her current symptoms, then she will have to be admitted and then fur ther consideration for repeat scope and PEG tube placement and speech path evaluation. RECOMMENDATIONS: 1. EGD, this evening. 2. The patient's medication list, as we are waiting on that to be faxed over from [facility] . She was apparently started on some medicine. After she had TIA more recently. This possibly coul d be an antiplatelet medication or anticoagulation. She is also on carbidopa/levodopa and antidepres ibeth another medicine for her Parkinson's and possibly aspirin, possibly Seroquel. She was on selegi line. The daughter does remember that one. I am not sure if she has been taking a proton-pump inhib itor.
--- NOTE | 2017-11-03 02:32 | OP ---
DATE OF PROCEDURE: 11/03/2017 PROCEDURE: Esophagogastroduodenoscopy with removal of foreign body and esophageal balloon dilation. PREOPERATIVE DIAGNOSIS: Esophageal food impaction. OPERATIVE NOTE: Informed consent was obtained from the patient. She was sedated with total intraven ous anesthesia. The biteblock was placed and the endoscope was advanced easily to the second portion of the duodenum and retroflexion was performed in the stomach. The esophagus was dilated with a lar ge amount of fluid and soft food. Several passes were made removing large amounts of soft food with a Mcintosh net. The scope was then passed to the distal esophagus and the food was advanced through the stricture into the stomach. The remainder of the esophagus was suctioned and the food was pushed alexei n through the stricture into the stomach. The stricture; however, was actually too tight to pass the diagnostic endoscope through. This was dilated to 16.5 mm with a balloon dilator. This is stage 2 of an 18 mm balloon. There was an appropriate tear at the dilation site. A 5 cm hiatal hernia was p resent. The stomach was otherwise unremarkable. The pylorus and first and second portions of the du odenum were normal. IMPRESSION: 1. Esophageal food impaction removed with a Mcintosh net. 2. Presbyesophagus. 3. A 5 cm hiatal hernia. 4. Esophageal stricture which was too tight to pass the diagnostic endoscope through. This was dila ning to 16.5 mm with a balloon dilator. RECOMMENDATIONS: 1. Proton pump inhibitor daily. 2. Repeat EGD in 2-4 weeks to dilate the stricture further. 3. Recommend full liquid diet for a few days and then do not advance beyond pureed diet.
== END 2017-11-03 02:10 | disposition home or self-care (01) ==
LOC: ERS 17:44 → SDC 21:20
PROVIDERS: ATTEND Internal Medicine Gastroenterology
PROC: 0D748ZZ Dilation of Esophagogastric Junction, Via Natural or Artificial Opening Endoscopic (ICD-10-PCS; principal; 2017-11-03)
PROC: 0DC58ZZ Extirpation of Matter from Esophagus, Via Natural or Artificial Opening Endoscopic (ICD-10-PCS; 2017-11-03)
DX: T18.128A Food in esophagus causing other injury, initial encounter (principal); K22.2 Esophageal obstruction; G20 Parkinson's disease; K22.8 Other specified diseases of esophagus; K44.9 Diaphragmatic hernia without obstruction or gangrene
CPT/HCPCS: J2001; J2704; J3010

== ENCOUNTER 2018-01-07 15:12 | Outpatient (CLI) | payer MEDICARE, OTHER | END 2018-01-07 15:13 | disposition home or self-care (01) | LOC: BICMAMMO 15:12 | PROVIDERS: ATTEND Family Medicine | DX: Z12.31 Encounter for screening mammogram for malignant neoplasm of breast (principal); Z80.3 Family history of malignant neoplasm of breast | CPT/HCPCS: 77063; 77067 ==

== ENCOUNTER 2018-02-11 18:18 | Emergency (ER) | payer MEDICARE, OTHER ==
[2018-02-11 18:58] LABS: #Basophils 0.1 thou/uL (0.0-0.2); #Eosinphils 0.2 thou/uL (0.0-0.7); #Lymphocytes 1.9 thou/uL (1.20-3.40); #Monocytes 0.7 thou/uL (0.11-0.59); #Neutrophils 3.2 thou/uL (1.40-6.50); %Basophils 1.1 % (0.0-1.0); %Eosinophils 3.3 % (0.0-10.0); %Lymphocytes 31.7 % (21.0-51.0); %Monocytes 11.4 % (0.0-10.0); %Neutrophils 52.5 % (42.0-75.0); Hemoglobin 13.2 g/dL (12.0-16.0); Mean Corpuscular HGB CONC 32.9 g/dL (32.0-36.0); Mean Corpuscular Hemoglobin 30.2 pg (27.0-31.0); Mean Corpuscular Volume 91.8 fL (78.0-98.0); Mean Platelet Volume 6.1 fL (7.4-10.4); Platelet Count 243 thou/uL (130-400); RBC Distribution Width 12.9 % (11.5-14.5); Red Blood Cell (RBC) Count 4.39 mill/uL (4.20-5.40); White Blood Cell (WBC) Count 6.1 thou/uL (4.8-10.8)
[2018-02-11 19:21] LABS: ALT (SGPT) 8 U/L (8-55); AST (SGOT) 20 U/L (5-34); Albumin 4.2 g/dL (3.4-4.8); Alkaline Phosphatase 87 U/L (40-150); Anion Gap 10 mmol/L (10-20); BUN (Urea Nitrogen) 23 mg/dL (9.8-20.1); Bilirubin, Total 0.3 mg/dL (0.2-1.2); Calc. Creatinine Clearance 0 mL/min (70-130); Calcium 9.8 mg/dL (7.8-10.44); Carbon Dioxide 30 mmol/L (23-31); Chloride 103 mmol/L (98-107); Estimated GFR-MDRD 66; Globulin 2.7 g/dL (2.4-3.5); Glucose 96 mg/dL (83-110); Potassium 4.2 mmol/L (3.5-5.1); Protein, Total 6.9 g/dL (6.0-8.3); Sodium 139 mmol/L (136-145)
--- NOTE | 2018-02-11 20:39 | RAD ---
RIGHT HIP TWO VIEW 02/11/18 HISTORY: Injury. COMPARISON: Hip radiographs from 2017. FINDINGS: No definite acute displaced fracture or malalignment. Moderate acetabular osteophytes are present. Right obturator ring is intact. IMPRESSION: Degenerative changes. No acute displaced fracture. POS: [facility]
--- NOTE | 2018-02-11 21:06 | CT ---
CT BRAIN WITHOUT CONTRAST 02/11/18 HISTORY: Fall. COMPARISON: CT brain 04/08/17. FINDINGS: No acute hemorrhage or infarct. No midline shift or mass effect. Ventricular size and extra-axial CSF spaces are normal for age. Old lacunar infarcts. Calvarium is intact. The paranasal sinuses and mastoids are clear. IMPRESSION: No acute intracranial abnormality. POS: [facility]
--- NOTE | 2018-02-11 21:36 | CT ---
CT CERVICAL SPINE WITHOUT CONTRAST 02/11/18 HISTORY: Fall. COMPARISON: 03/14/17. FINDINGS: The odontoid process is intact. Occipital condyles are intact. Moderate facet arthrosis bilaterally. No acute displaced fracture or malalignment. Anterolisthesis of C4 over C5 due to facet arthropathy. Mastoids are clear. Foramen magnum is without fracture. Lung apices are clear. Thyroid is heterogeneous. IMPRESSION: 1. No acute displaced fracture or malalignment of the cervical spine. 2. 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 POS: [facility]
== END 2018-02-11 21:42 | disposition home or self-care (01) ==
LOC: ERS 18:18
DX: S00.93XA Contusion of unspecified part of head, initial encounter (principal); G20 Parkinson's disease; K21.9 Gastro-esophageal reflux disease without esophagitis; Z79.899 Other long term (current) drug therapy; W19.XXXA Unspecified fall, initial encounter
CPT/HCPCS: 36415; 70450; 72125; 80053; 85025; 93005